=== PATIENT | female | born 1960 | race Caucasian/White ===

== ENCOUNTER 2019-07-17 21:00 | Emergency (ER) | payer BC ==
--- NOTE | 2019-07-17 21:19 | EDM.PDOC ---
ED HPI GENERAL MEDICAL PROBLEM - General Chief Complaint: Upper Extremity Injury/Pain Stated Complaint: LEFT WRIST INJURY Time Seen by Provider: 07/17/19 21:06 Source of Information: Reports: Patient History Limitations: Reports: No Limitations - History of Present Illness INITIAL COMMENTS - FREE TEXT/NARRATIVE: This is a 58-year-old female. Tonight she was at the [email or web address] and she was with some kids playing with them and she slipped and fell backwards and hit the back of her head but she denies any loss of consciousness and has no headache just has some soreness on her scalp and a bump on her scalp. She denies any neck pain or back pain. She got back up and shortly thereafter she fell again however this time forward and she straight armed with her left upper extremity and she is now injured her left wrist. She denies any hand pain in the elbow or shoulder pain on the left denies any upper extremity injury. She comes to the ER for evaluation. Left Wrist Pain Score (Numeric/FACES): 9 - Related Data Allergies Allergy/AdvReac Type Severity Reaction Status Date / Time amoxicillin Allergy Rash Verified 07/17/19 21:28 azithromycin [From Zithromax] Allergy Rash Verified 07/17/19 21:29 cephalexin Allergy Rash Verified 07/17/19 21:30 erythromycin base Allergy Anaphylactic Verified 07/17/19 21:30 Shock Penicillins Allergy Rash Verified 07/17/19 21:28 Home Meds: Home Meds Hydrocodone/Acetaminophen [Hydrocodon-Acetaminophen 5-325] 1 each PO Q4H PRN # 20 tablet 07/17/19 [Rx] Review of Systems - Review of Systems Review Of Systems: See Below Constitutional: Denies: Chills, Fever Eyes: Reports: No Symptoms Ears: Reports: No Symptoms Nose: Reports: No Symptoms Mouth/Throat: Reports: No Symptoms Respiratory: Denies: Shortness of Breath, Cough Cardiovascular: Denies: Chest Pain GI/Abdominal: Reports: No Symptoms Genitourinary: Reports: No Symptoms Musculoskeletal: Reports: Other (Aspirin history of present illness) Skin: Reports: Other (As per history of present illness) Neurological: Denies: Headache, Paresthesia, Syncope Psychiatric: Reports: No Symptoms ED EXAM, GENERAL - Physical Exam Exam: See Below Exam Limited By: No Limitations General Appearance: Alert, WD/WN, No Apparent Distress Eye Exam: Bilateral Eye: Normal Inspection, PERRL Ears: Normal External Exam, Normal Canal, Normal TMs Nose: Normal Inspection Throat/Mouth: Normal Lips, Normal Voice, No Airway Compromise Head: Other (She has a small knot on the right posterior parietal, no lacerations no bleeding no abrasions) Neck: Supple, Non-Tender, Other (She denies any cervical tenderness and moves her neck with no difficulty) Respiratory/Chest: No Respiratory Distress, Lungs Clear, Normal Breath Sounds Cardiovascular: Regular Rate, Rhythm, No Murmur Back Exam: Normal Inspection, Full Range of Motion, Other (She denies any thoracic or lumbar tenderness) Extremities: Other (Her left wrist has swelling over the distal radius noted, may be a slight deformity but cannot tell exactly due to the swelling, she has sensation intact in all 5 digits, she denies any elbow pain or shoulder pain on palpation and movement, the right upper extremity is atraumatic) Neurological: Alert, Oriented, CN II-XII Intact, No Motor/Sensory Deficits Psychiatric: Normal Affect, Normal Mood Skin Exam: Warm, Dry ED TRAUMA EXTREMITY PROCEDURES - Splinting Left Upper Extremity Splint Site: Left wrist Pre-Procedure NV Status: Normal Post-Procedure NV Status: Normal Splint Material: Other (Ortho-Glass) Splint Design: Sugar Tong Applied & Form Fitted By: Provider Provider Post-Splint Application NV Check: NV Status Normal, Good Position Complications: No Course - Vital Signs Last Recorded V/S: Last Vital Signs Temp 96.8 F 07/17/19 21:08 Pulse 61 07/17/19 21:08 Resp 20 07/17/19 21:08 BP 105/61 07/17/19 21:08 Pulse Ox 100 07/17/19 21:08 - Orders/Labs/Meds Orders: Active Orders 24 hr Category Date Time Status Wrist Comp Min 3V Lt [CR] Stat Exams 07/17/19 21:14 Taken DME for Discharge [COMM] Per Unit Routine Oth 07/17/19 22:03 Ordered DME for Discharge [COMM] Stat Oth 07/17/19 22:07 Ordered Meds: Medications Discontinued Medications Generic Name Dose Route Start Last Admin Trade Name Freq PRN Reason Stop Dose Admin Hydrocodone Bitart/Acetaminophen 2 tab 07/17/19 22:07 07/17/19 22:18 Gloster 325-5 Mg PO 07/17/19 22:08 2 tab ONETIME ONE Administration - Radiology Interpretation Free Text/Narrative:: X-ray shows a comminuted distal radius fracture. It does not appear to be displaced or it is minimally displaced. - Re-Assessments/Exams Free Text/Narrative Re-Assessment/Exam: 07/17/19 21:21 The patient has a ring on her left ring finger that we will remove since her hand will more than likely swell if she is in a splint and a sling. 07/17/19 22:04 I spoke to the patient regarding her fracture. We'll place her in a sugar tong splint and a sling. She was to follow up with Dr. Avalos in [place] and I'll give them the number to call tomorrow morning at 9 AM to get an appointment to be seen next week with Dr. Avalos. I did call the answering service and this is what they wanted the patient to do is to call tomorrow to arrange an appointment time. I'll provide that information to the patient. I also pushed the x-ray films to bone and joint this evening. Departure - Departure Time of Disposition: 22:05 Disposition: Home, Self-Care 01 Condition: Fair Clinical Impression: Distal radius fracture, left Qualifiers: Encounter type: initial encounter Fracture type: closed Fracture morphology: other fracture Qualified Code(s): S52.592A - Other fractures of lower end of left radius, initial encounter for closed fracture - Discharge Information *PRESCRIPTION DRUG MONITORING PROGRAM REVIEWED*: No *COPY OF PRESCRIPTION DRUG MONITORING REPORT IN PATIENT KHLOE: No Prescriptions: Hydrocodone/Acetaminophen [Hydrocodon-Acetaminophen 5-325] 1 each PO Q4H PRN # 20 tablet PRN Reason: Pain Instructions: Cast or Splint Care, Adult, [id number], Wrist Fracture Treated With Immobilization, [id number] Referrals: Carlos Alberto Pan MD [Primary Care Provider] - Jerrell Avalos MD [Consulting Physician] - Forms: ED Department Discharge Additional Instructions: Keep the splint on at all times and do not take it off until you see Dr. Avalos tomorrow morning after 9 AM call [phone] and select option 1 or 2 and when you talk to the person let them know that you have a distal radius fracture that is comminuted and minimally displaced, that you were seen and splinted at the [facility] ER in [facility] and that you need to follow up with Dr. Avalos and that the x-rays were pushed to [facility] from the ER and the chart should be sent to Dr. Avalos from the ER, take your hydrocodone as needed for the pain and throbbing, continue to ice your wrist down over the next 48 hours, return to the ER if needed - My Orders Last 24 Hours: My Active Orders 07/17/19 21:14 Wrist Comp Min 3V Lt [CR] Stat 07/17/19 22:03 DME for Discharge [COMM] Per Unit Routine 07/17/19 22:07 DME for Discharge [COMM] Stat - Assessment/Plan Last 24 Hours: My Active Orders 07/17/19 21:14 Wrist Comp Min 3V Lt [CR] Stat 07/17/19 22:03 DME for Discharge [COMM] Per Unit Routine 07/17/19 22:07 DME for Discharge [COMM] Stat
[2019-07-17] MEDS ORDERED: Acetaminophen/HYDROcodone 325-5 MG Tab PO ONE (22:07)
--- NOTE | 2019-07-18 08:26 | CR ---
Left wrist: 4 views of the left wrist were obtained. Comparison: No previous wrist exam. Comminuted fracture is noted within the distal radius. Mild posterior impaction is seen. Articular extension of a fracture line is noted. Small avulsion fracture off the tip of the ulnar styloid process is noted. Soft tissue swelling is identified. Slight cystic change is noted within the lunate bone which is felt to be incidental. Impression: 1. Complicated distal left radial fracture as noted above. 2. Small fracture within the ulnar styloid process. 3. Soft tissue swelling. Diagnostic code #3
== END 2019-07-17 22:21 | disposition home or self-care (01) ==
LOC: JD.ED 21:00
DX: S52.592A Other fractures of lower end of left radius, initial encounter for closed fracture (principal); Z88.0 Allergy status to penicillin; Z88.1 Allergy status to other antibiotic agents; W01.198A Fall on same level from slipping, tripping and stumbling with subsequent striking against other object, initial encounter; Y93.21 Activity, ice skating; Y92.331 Roller skating rink as the place of occurrence of the external cause
CPT/HCPCS: 29125; 73110; 99283; A9270

== ENCOUNTER 2019-10-27 08:37 | Emergency (ER) | payer BC ==
--- NOTE | 2019-10-27 09:19 | EDM.PDOC ---
ED HPI GENERAL MEDICAL PROBLEM - General Chief Complaint: Back Pain or Injury Stated Complaint: BACK PAIN Time Seen by Provider: 10/27/19 09:11 Source of Information: Reports: Patient History Limitations: Reports: No Limitations - History of Present Illness INITIAL COMMENTS - FREE TEXT/NARRATIVE: 58-year-old female presents to the ED with diffuse right lower back pain radiating along her right posteriorly iliac crest to the lower abdominal wall in the midline. Pain is constant. She reports the skin seems to be overly sensitive and burning and prickling in this area as well. She states the pain started 4 days ago. She was seen in the walk-in clinic 2 days ago and had lab work and no positive findings on examination. Today the pain is worse. She states she's really not limping but she can't lie on this side due to the severity of the pain. No problems with her low back. Was voiding. Bowel function is normal. No fever or chills. Onset: Gradual Onset Date: 10/23/19 Duration: Day(s):, Constant, Getting Worse Location: Reports: Abdomen, Back (Right lower back radiating along the right iliac crest to the midline of the abdomen just above the pubic symphysis.) Quality: Reports: Ache, Burning, Other (It is constant and very tender to touch the skin.) Severity: Moderate Improves with: Reports: None Worsens with: Reports: Other. Denies: Immobilization Context: Denies: Activity (Touching the area or wearing her jeans rubs on the area.), Exercise, Lifting, Sick Contact, Trauma Associated Symptoms: Reports: No Other Symptoms, Other. Denies: Fever/Chills, Headaches, Loss of Appetite, Nausea/Vomiting, Rash, Seizure, Shortness of Breath Treatments BI ANALYST: Reports: Other (see below) (Bowel function is normal.) Right Hip Pain Score (Numeric/FACES): 7 - Related Data Allergies Allergy/AdvReac Type Severity Reaction Status Date / Time amoxicillin Allergy Rash Verified 10/27/19 08:52 azithromycin [From Zithromax] Allergy Rash Verified 10/27/19 08:52 cephalexin Allergy Rash Verified 10/27/19 08:52 erythromycin base Allergy Anaphylactic Verified 10/27/19 08:52 Shock Penicillins Allergy Rash Verified 10/27/19 08:52 Home Meds: Home Meds Hydrocodone/Acetaminophen [Hydrocodon-Acetaminophen 5-325] 1 each PO Q4H PRN # 20 tablet 07/17/19 [Rx] oxyCODONE HCl/Acetaminophen [Percocet 5-325 mg Tablet] 1 - 2 each PO Q4H PRN # 16 tablet 10/27/19 [Rx] valACYclovir [Valtrex] 1,000 mg PO TID #21 tab 10/27/19 [Rx] Past Medical History Respiratory History: Reports: Other (See Below) Other Respiratory History: punctured lungs Musculoskeletal History: Reports: Fracture, Other (See Below) Other Musculoskeletal History: Fx ribs - Past Surgical History Musculoskeletal Surgical History: Reports: Arthroscopic Knee, Shoulder Surgery Social & Family History - Caffeine Use Caffeine Use: Reports: None - Living Situation & Occupation Living situation: Reports: Occupation: Employed ED ROS GENERAL - Review of Systems Review Of Systems: See Below Constitutional: Denies: Fever, Chills, Malaise, Weakness, Fatigue, Decreased Appetite, Weight Loss HEENT: Reports: No Symptoms Respiratory: Reports: No Symptoms Cardiovascular: Reports: No Symptoms Endocrine: Reports: No Symptoms GI/Abdominal: Reports: No Symptoms : Reports: No Symptoms Musculoskeletal: Reports: Back Pain (Around the right iliac crest to the front of her abdomen.) Skin: Reports: Rash (On today's examination we identified a rash that she did not show she had. The rash is characteristic of shingles.) Neurological: Reports: Paresthesia (Pain is static i.e. burning biting and hypersensitive along the lumbar 1 dermatome.) Hematologic/Lymphatic: Reports: No Symptoms Immunologic: Reports: No Symptoms ED EXAM,LOWER BACK PAIN/INJURY - Physical Exam Exam: See Below Exam Limited By: No Limitations General Appearance: Alert, WD/WN, Mild Distress, Other (Vital signs are normal.) Respiratory/Chest: No Respiratory Distress, Lungs Clear, Normal Breath Sounds, No Accessory Muscle Use Cardiovascular: Normal Peripheral Pulses, Regular Rate, Rhythm, No Edema, No Gallop, No Murmur, No Rub GI/Abdominal: Normal Bowel Sounds, Soft, Non-Tender, No Organomegaly, No Distention, No Abnormal Bruit, Other (Patient has clusters of vesicles anterior abdominal wall that do not cross the midline in the L1-2 distribution.) Back Exam: Other (Patient has a cluster of shingles rash adjacent to the L3 spinous process in her lower back and a few vesicles rate at the anterior posterior iliac line.) Extremities: Normal Inspection, Normal Range of Motion, Non-Tender Neurological: Alert, Normal Mood/Affect, CN II-XII Intact Psychiatric: Normal Affect, Normal Mood Skin Exam: Warm, Dry, Intact, Normal Color, Zoster-Like Rash Course - Vital Signs Last Recorded V/S: Last Vital Signs Temp 36.9 C 10/27/19 08:49 Pulse 80 10/27/19 08:49 Resp 16 10/27/19 08:49 BP 136/73 10/27/19 08:49 Pulse Ox 100 10/27/19 08:49 - Radiology Interpretation Free Text/Narrative:: 64-year-old female presents to the ED with diffuse right sided low back pain rating along her right iliac crest and hip area to her lower abdomen. Examination reveals characteristic herpes zoster rash starting at the lumbar 3 vertebra and traveling along the iliac crest in the distribution of actually the lumbar one lumbar to dermatome to the lower abdominal wall just above her pubic symphysis. Causing her pain for the last 34 days. She had not noticed the rash until I pointed out today. Patient be treated with fell 6 of your 1 g 3 times a day for the next 7 days. Percocet tabs 5/325 mg 16 tells were provided for pain relief 1 tablet with Motrin 600 mg every 6 hours as needed for pain relief. Follow-up if not markedly improved in 10 days' time. Departure - Departure Time of Disposition: 09:12 Disposition: Home, Self-Care 01 Condition: Fair Clinical Impression: Herpes zoster Qualifiers: Herpes zoster complications: without complications Qualified Code(s): B02.9 - Zoster without complications - Discharge Information *PRESCRIPTION DRUG MONITORING PROGRAM REVIEWED*: Not Applicable *COPY OF PRESCRIPTION DRUG MONITORING REPORT IN PATIENT KHLOE: Not Applicable Prescriptions: oxyCODONE HCl/Acetaminophen [Percocet 5-325 mg Tablet] 1 - 2 each PO Q4H PRN # 16 tablet PRN Reason: pain relief. valACYclovir [Valtrex] 1,000 mg PO TID #21 tab Instructions: Neuropathic Pain, Shingles Referrals: Carlos Alberto Pan MD [Primary Care Provider] - Forms: ED Department Discharge Additional Instructions: Evaluation in the emergency room today in regards to development of diffuse right lower back pain rating along your right lower abdomen along the iliac crest to the midline of the abdomen. Pain started approximately 3-1/2-4 days ago. He was seen in the clinic 2 days ago with no positive findings on examination or laboratory testing. On examination today there is evidence of shingles rash which explains the severity of your pain in the very sensitive skin that goes along with it. He will break out in a cluster of rash for up to a week after that first part of the rash shows up and it will become slightly woozy and draining which should keep covered as you're contagious to others particular a small children and elderly personnel in a usp until it becomes crusted and dry and you are no longer contagious. His usually takes a week. The rash will start to fade after 3 weeks but often will leave you barton where the rash was for up to a year. Treatment is antiviral medication valacyclovir 1 g 3 times daily for the next 7 days to reduce pain and inflammation. Continue Motrin 600 mg every 6 hours or Aleve 2 tablets every 8 hours to relieve pain and inflammation while at work. When not at work he may use Percocet tablet 5/325 mg one or 2 every 4-6 hours for pain relief as well. Pain settles down within the next week to 10 days. if it lasts longer than this then you should follow-up with her personal care physician. Sepsis Event Note - Evaluation Sepsis Screening Result: No Definite Risk - Focused Exam Vital Signs: Vital Signs Temp Pulse Resp BP Pulse Ox 10/27/19 08:49 36.9 C 80 16 136/73 100 Date Exam was Performed: 10/27/19 Time Exam was Performed: 09:24
== END 2019-10-27 09:30 | disposition home or self-care (01) ==
LOC: JD.ED 08:37
DX: B02.9 Zoster without complications (principal); Z88.0 Allergy status to penicillin; Z88.1 Allergy status to other antibiotic agents
CPT/HCPCS: 99283